=== PATIENT | male | born 1970 | race Caucasian/White ===

== ENCOUNTER 2017-07-28 19:27 | Observation (INO) ==
[2017-07-28] MEDS ORDERED: ASPIRIN 325 MG TABLET PO STA (19:57)
[2017-07-28 20:07] LABS: Basophils # 0.1 10*3/uL (0.0-0.2); Basophils % 0.8 % (0.0-0.8); Eosinophils # 0.1 10*3/uL (0.0-0.87); Eosinophils % 2.3 % (0.00-10.9); Hematocrit 42.6 VOL% (42.0-52.0); Hemoglobin 14.4 GM/DL (14.0-18.0); Immature Granulocytes % 0.2 %; Immature Granulocytes Absolute 0.01 #; Lymphocytes # 2.1 10*3/uL (1.4-4.0); Lymphocytes % 33.9 % (21.2-54.2); Mean Corpuscular HGB Conc 33.8 GM/DL (32-36); Mean Corpuscular Hemoglobin 30 PG (27-34); Mean Corpuscular Volume 88.2 FL (87-102); Mean Platelet Volume 10.4 FL (9.6-12.0); Monocytes # 0.5 10*3/uL (0.11-0.8); Monocytes % 8.9 % (1.7-12.7); Neutrophils # 3.3 10*3/uL (1.4-7.4); Neutrophils % 53.9 % (38.7-73.9); Platelet Count 255 T/CUMM (130-400); Red Blood Count 4.83 MC/CUMM (3.8-5.5); Red Cell Distribution Width 13.1 % (9.3-17.3); White Blood Count 6.1 T/CUMM (4-12)
[2017-07-28 20:16] LABS: INR 0.9
[2017-07-28 20:27] LABS: Alanine Aminotransferase 35 U/L (16-61); Albumin 3.8 G/DL (3.4-5.0); Alkaline Phosphatase 25 U/L (45-117); Aspartate Amino Transferase 17 U/L (0-37); Blood Urea Nitrogen 9 MG/DL (7-18); Calcium 8.9 MG/DL (8.5-10.1); Glucose 89 MG/DL (74-106); Osmolality,Calculated 274.5 MOS/KG (273-304); Potassium 3.4 MMOL/L (3.5-5.1); Sodium 139 MMOL/L (136-145); Total Protein 7.5 G/DL (6.4-8.3); Troponin I Only < 0.015 NG/ML (0.00-0.045)
[2017-07-28] MEDS ORDERED: DOCUSATE SODIUM 100 MG CAPSULE PO PRN (21:40)
[2017-07-28] MEDS ORDERED: MORPHINE 4 MG/1 ML VIAL IV PRN (21:40)
[2017-07-28] MEDS ORDERED: ZALEPLON 5 MG CAPSULE PO PRN (21:40)
[2017-07-28] MEDS ORDERED: ONDANSETRON 4 MG/2 ML VIAL IV PRN (21:40)
[2017-07-28] MEDS ORDERED: NITROGLYCERIN SL 0.4 MG TABLET SL PRN (21:42)
[2017-07-28] MEDS: ENOXAPARIN 40 MG/0.4 ML SYRINGE SUBCUT SCH (21:55)
[2017-07-28] MEDS ORDERED: NICOTINE 21 MG/24 HR PATCH TRANSDERM PRN (21:59)
[2017-07-28 22:34] LABS: Risk Ratio 3.98; Thyroid Stimulating Hormone 2.34 uIU/ml (0.358-3.74); VLDL CHOLESTEROL 41.2 MG/DL
[2017-07-29] MEDS: ALPRAZolam 0.25 MG TABLET PO PRN (13:18)
[2017-07-29] MEDS: PANTOPRAZOLE 40 MG TABLET PO SCH (13:18)
[2017-07-29] MEDS: DICYCLOMINE 10 MG CAPSULE PO SCH ×3 (13:18→20:21)
[2017-07-29] MEDS: ASPIRIN EC 81 MG TABLET PO SCH (13:18)
[2017-07-29] MEDS: ENOXAPARIN 40 MG/0.4 ML SYRINGE SUBCUT SCH (21:27)
[2017-07-30] MEDS ORDERED: ROSUVASTATIN 20 MG TABLET PO SCH (09:00)
[2017-07-30] MEDS: ALPRAZolam 0.25 MG TABLET PO PRN (10:04)
[2017-07-30] MEDS: ASPIRIN EC 81 MG TABLET PO SCH (10:04)
[2017-07-30] MEDS: DICYCLOMINE 10 MG CAPSULE PO SCH ×2 (10:05→16:16)
[2017-07-30] MEDS: PANTOPRAZOLE 40 MG TABLET PO SCH (10:05)
[2017-07-30 12:02] VITALS: BP 120/69
== END 2017-07-30 16:18 | disposition home or self-care (01) ==
LOC: N.ED 19:27 → N.EDINP 19:27 → N.4E 22:48
PROVIDERS: ADMIT Family Medicine; ATTEND Family Medicine